=== PATIENT | female | born 1985 | race Caucasian/White ===

== ENCOUNTER 2018-09-01 10:50 | Emergency (ER) | payer BC ==
[2018-09-01] MEDS ORDERED: Lactated Ringers 1,000 ML IV ONE ×2 (11:53→12:50)
[2018-09-01] MEDS ORDERED: Sodium Chloride 0.9% 10 ML Syringe FLUSH PRN (11:53)
[2018-09-01] MEDS ORDERED: Ondansetron 4 MG/2 ML SDV IVPUSH ONE (11:53)
[2018-09-01] MEDS ORDERED: Famotidine 20 MG/2 ML SDV IVPUSH ONE (11:54)
--- NOTE | 2018-09-01 12:06 | EDM.PDOC ---
ED HPI GENERAL MEDICAL PROBLEM - General Chief Complaint: Gastrointestinal Problem Stated Complaint: THROWING UP, LIGHT HEADED Time Seen by Provider: 09/01/18 11:40 Source of Information: Reports: Patient History Limitations: Reports: No Limitations - History of Present Illness INITIAL COMMENTS - FREE TEXT/NARRATIVE: 33-year-old female presents for evaluation and treatment of nausea, vomiting and diarrhea. Patient reports that her symptoms started on Wednesday with diarrhea. States she's had 2 or 3 episodes of diarrhea on Wednesday. She states that the vomiting started last night and has had multiple episodes of vomiting. States she's not had any additional diarrhea as she did take some Imodium. She is reporting associated symptoms of fatigue, lightheadedness, nausea and decreased appetite. No blood in her emesis nor her stool. She's not had a bowel movement now since Wednesday. She denies any sore throat, ear pain, cough or abdominal pain. She denies any ill contacts. She denies any questionable foods. She denies any recent travel. She states she has not been on any antibiotics recently. She is currently on her menstrual cycle. Duration: Day(s): (4) Abdominal Pain Score (Numeric/FACES): 4 - Related Data Allergies Allergy/AdvReac Type Severity Reaction Status Date / Time escitalopram [From Lexapro] Allergy Shaking Verified 09/01/18 11:25 Home Meds: Home Meds Ondansetron [Zofran ODT] 4 mg PO Q6H PRN #20 tab.dis 09/01/18 [Rx] atorvaSTATin Calcium [Atorvastatin Calcium] 10 mg PO DAILY 09/01/18 [History] metFORMIN HCl [Metformin HCl] 1,000 mg PO BID 09/01/18 [History] Past Medical History HEENT History: Reports: Impaired Vision Cardiovascular History: Reports: Hypertension Gastrointestinal History: Reports: GERD, Irritable Bowel Syndrome Psychiatric History: Reports: Anxiety Endocrine/Metabolic History: Reports: Diabetes, Type II Social & Family History - Tobacco Use Smoking Status *Q: Never Smoker - Caffeine Use Caffeine Use: Reports: None - Recreational Drug Use Recreational Drug Use: No ED ROS GENERAL - Review of Systems Review Of Systems: See Below GI/Abdominal: Reports: Abdominal Pain, Diarrhea, Nausea, Vomiting. Denies: Bloody Stool, Hematochezia, Melena Neurological: Reports: Dizziness ED EXAM, GI/ABD - Physical Exam Exam: See Below Exam Limited By: No Limitations General Appearance: Alert, WD/WN, No Apparent Distress Throat/Mouth: Other (dry mucus membranes, dry lips) Respiratory/Chest: No Respiratory Distress, Lungs Clear, Normal Breath Sounds Cardiovascular: Normal Peripheral Pulses, Regular Rate, Rhythm, No Murmur GI/Abdominal Exam: Soft, Non-Tender, Other (decreased bowel sounds) Neurological: Alert, Oriented, Normal Cognition Psychiatric: Normal Affect, Normal Mood Skin Exam: Warm, Dry, Normal Color Course - Vital Signs Last Recorded V/S: Last Vital Signs Temp 97.9 F 09/01/18 11:20 Pulse 117 H 09/01/18 11:20 Resp 16 09/01/18 11:20 BP 147/92 H 09/01/18 11:20 Pulse Ox 100 09/01/18 11:20 Orthostatic Blood Pressure [ 140/93 Standing] Orthostatic Blood Pressure [ 145/98 Sitting] Orthostatic Blood Pressure [ 147/92 Supine] - Orders/Labs/Meds Orders: Active Orders 24 hr Category Date Time Status Orthostatic Vital Signs [RC] ASDIRECTED Care 09/01/18 11:21 Active Peripheral IV Care [RC] . DIRECTED Care 09/01/18 11:53 Active Peripheral IV Insertion Adult [OM.PC] Routine Oth 09/01/18 11:53 Ordered Labs: Laboratory Tests 09/01/18 09/01/18 09/01/18 Range/Units 11:45 11:45 14:15 WBC 10.22 H (3.98-10.04) K/mm3 RBC 4.30 (3.98-5.22) M/mm3 Hgb 13.7 (11.2-15.7) gm/L Hct 39.9 (34.1-44.9) % MCV 92.8 (79.4-94.8) fl MCH 31.9 (25.6-32.2) pg MCHC 34.3 (32.2-35.5) g/dl RDW Std Deviation 38.8 (36.4-46.3) fL Plt Count 388 H (182-369) K/mm3 MPV 8.9 L (9.4-12.3) fl Neut % (Auto) 73.1 H (34.0-71.1) % Lymph % (Auto) 21.5 (19.3-51.7) % [place] % (Auto) 4.3 L (4.7-12.5) % Eos % (Auto) 0.6 L (0.7-5.8) Baso % (Auto) 0.5 (0.1-1.2) % Neut # (Auto) 7.47 H (1.56-6.13) K/mm3 Lymph # (Auto) 2.20 (1.18-3.74) K/mm3 [place] # (Auto) 0.44 H (0.24-0.36) K/mm3 Eos # (Auto) 0.06 (0.04-0.36) K/mm3 Baso # (Auto) 0.05 (0.01-0.08) K/mm3 Sodium 136 (136-145) mEq/L Potassium 3.5 (3.5-5.1) mEq/L Chloride 96 L (98-107) mEq/L Carbon Dioxide 25 (21-32) mEq/L Anion Gap 18.5 H (5-15) BUN 15 (7-18) mg/dL Creatinine 1.1 H (0.55-1.02) mg/dL Est Cr Clr Drug Dosing 77.19 mL/min Estimated GFR (MDRD) 57 (>60) mL/min BUN/Creatinine Ratio 13.6 L (14-18) Glucose 210 H (74-106) mg/dL Calcium 9.5 (8.5-10.1) mg/dL Magnesium 1.4 L (1.8-2.4) mg/dl Total Bilirubin 0.4 (0.2-1.0) mg/dL AST 46 H (15-37) U/L ALT 51 (14-59) U/L Alkaline Phosphatase 32 L (46-116) U/L Total Protein 8.4 H (6.4-8.2) g/dl Albumin 4.4 (3.4-5.0) g/dl Globulin 4.0 gm/dL Albumin/Globulin Ratio 1.1 (1-2) Urine Color [place] H (Yellow) Urine Appearance Cloudy H (Clear) Urine pH 7.0 (5.0-8.0) Ur Specific [place] 1.015 (1.005-1.030) Urine Protein 2+ H (Negative) Urine Glucose (UA) Negative (Negative) Urine Ketones Negative (Negative) Urine Occult Blood 3+ H (Negative) Urine Nitrite Negative (Negative) Urine Bilirubin Negative (Negative) Urine Urobilinogen 0.2 (0.2-1.0) Ur Leukocyte Esterase Negative (Negative) Urine RBC >100 H (0-5) /hpf Urine WBC Not seen (0-5) /hpf Ur Squamous Epith Cells 5-10 H (0-5) /hpf Urine Bacteria Rare (FEW) /hpf Urine Mucus Not seen (FEW) /hpf Meds: Medications Discontinued Medications Generic Name Dose Route Start Last Admin Trade Name Freq PRN Reason Stop Dose Admin Famotidine 20 mg 09/01/18 11:54 09/01/18 12:07 Pepcid IVPUSH 09/01/18 11:55 20 mg ONETIME ONE Administration Lactated Ringer's 1,000 mls @ 999 mls/hr 09/01/18 11:53 09/01/18 12:06 Ringers, Lactated IV 09/01/18 12:53 999 mls/hr .BOLUS ONE Administration Lactated Ringer's 1,000 mls @ 999 mls/hr 09/01/18 12:50 09/01/18 13:09 Ringers, Lactated IV 09/01/18 13:50 999 mls/hr .BOLUS ONE Administration Magnesium Sulfate 2 gm/ Premix 50 mls @ 50 mls/hr 09/01/18 13:21 09/01/18 14: 23 IV 09/01/18 14:20 50 mls/hr ONETIME ONE Administration Ondansetron HCl 4 mg 09/01/18 11:53 09/01/18 12:06 Zofran IVPUSH 09/01/18 11:54 4 mg ONETIME ONE Administration Sodium Chloride 10 ml 09/01/18 11:53 09/01/18 12:08 Saline Flush FLUSH 10 ml ASDIRECTED PRN Administration Keep Vein Open - Re-Assessments/Exams Free Text/Narrative Re-Assessment/Exam: 09/01/18 13:34 Checked on the patient. She is feeling improved and sipping on some fluids. She is on her second liter of fluid. Plan will be to give her low magnesium is remaining is low at 1.4 and give her the additional fluids. Will plan discharge her home with Zofran and symptomatic care. 09/01/18 14:13 Patient feeling improved. Instructed to utilize clear fluids and a bland diet. Follow-up if not better. Discharge instructions as documented. Departure - Departure Time of Disposition: 14:25 Disposition: Home, Self-Care 01 Condition: Good Clinical Impression: Nausea & vomiting, Viral gastroenteritis - Discharge Information *PRESCRIPTION DRUG MONITORING PROGRAM REVIEWED*: No *COPY OF PRESCRIPTION DRUG MONITORING REPORT IN PATIENT VICKY: No Prescriptions: Ondansetron [Zofran ODT] 4 mg PO Q6H PRN #20 tab.dis PRN Reason: Nausea Instructions: Viral Gastroenteritis, Adult, [id number], Nausea and Vomiting, Adult, [id number] Referrals: Damaris Dove SERVICE CAR DRIVER [Primary Care Provider] - Forms: ED Department Discharge Additional Instructions: Drink plenty of fluids. Water, gatorade or powerade. Take small frequent sips. Clear fluids today and tomorrow morning. [place] foods tomorrow. [place] foods include bread, applesauce, bananas, toast, soup broth, etc. May advance to a normal diet tomorrow. Zofran 1 tab sublingual every 6-8 hours prn nausea. Recommend a probiotic, these are available OTC. Follow-up with PCP if not better in 7-10 days. Please return to the ER should your symptoms change or worsen. - My Orders Last 24 Hours: My Active Orders 09/01/18 11:21 Orthostatic Vital Signs [RC] ASDIRECTED 09/01/18 11:53 Peripheral IV Care [RC] . DIRECTED Peripheral IV Insertion Adult [OM.PC] Routine - Assessment/Plan Last 24 Hours: My Active Orders 09/01/18 11:21 Orthostatic Vital Signs [RC] ASDIRECTED 09/01/18 11:53 Peripheral IV Care [RC] . DIRECTED Peripheral IV Insertion Adult [OM.PC] Routine
[2018-09-01] MEDS ORDERED: Magnesium Sulfate/Water 2 GM in Premix Bag 1 BAG IV ONE (13:21)
== END 2018-09-01 15:20 | disposition home or self-care (01) ==
LOC: JD.ED 10:50
DX: A08.4 Viral intestinal infection, unspecified (principal); E11.9 Type 2 diabetes mellitus without complications; I10 Essential (primary) hypertension; F41.9 Anxiety disorder, unspecified; K21.9 Gastro-esophageal reflux disease without esophagitis; Z79.84 Long term (current) use of oral hypoglycemic drugs; Z79.899 Other long term (current) drug therapy; Z88.8 Allergy status to other drugs, medicaments and biological substances
CPT/HCPCS: 36415; 80053; 81001; 83735; 85025; 96361; 96365; 96375; 99284; J2405; J3475; J3490; J7120

== ENCOUNTER 2019-01-20 12:32 | Emergency (ER) | payer BC ==
--- NOTE | 2019-01-20 13:43 | EDM.PDOC ---
ED HPI GENERAL MEDICAL PROBLEM - General Chief Complaint: Lower Extremity Injury/Pain Stated Complaint: R FOOT NUMBNESS Time Seen by Provider: 01/20/19 13:22 Source of Information: Reports: Patient History Limitations: Reports: No Limitations - History of Present Illness INITIAL COMMENTS - FREE TEXT/NARRATIVE: 33-year-old female presents the ED for evaluation of lancinating sharp stabbing burning pain in her right foot this seems to be spreading. Appreciated in her toes on Wednesday last week January 13 and seems to be traveling towards her heel. Her mother from a complication of peripheral vascular disease and diabetic neuropathy which created an ulceration in her heel she is therefore somewhat anxious in this regard. Patient has been prediabetic for 10 years and started on medication for type 2 diabetes about a year ago. Her hemoglobin A1c was last around 8.3. She is starting to check her sugars on a much more regular basis. Also has a very markedly elevated hypertriglyceridemia and elevated cholesterol due to a very low HDL at 18. He states the pain is in bed not to keep her awake at night it was just more concerning than something more serious was involving. Onset: Gradual Onset Date: 01/13/19 (Has some symptoms of neuropathy in the left foot for a lengthy period of time no symptoms developing in the right foot.) Duration: Day(s):, Waxing/Waning Location: Reports: Lower Extremity, Left (Had her left great toenail ), Lower Extremity, Right Quality: Reports: Other (Describes the pain as burning sharp and lancinating. Will shoot mostly on the dorsal lateral aspect of her foot but until all of her toes. Not so much on these foot.) Severity: Moderate (Her heel at times as well.) Improves with: Reports: None Worsens with: Reports: None Context: Reports: Other. Denies: Activity, Exercise, Lifting, Sick Contact, Trauma Associated Symptoms: Reports: Malaise. Denies: No Other Symptoms, Confusion, Chest Pain, Cough, cough w sputum, Diaphoresis, Fever/Chills, Headaches, Loss of Appetite, Nausea/Vomiting, Rash, Seizure, Shortness of Breath, Syncope Treatments DIRECTOR GIFT: Reports: Other (see below) (Only her regular medications.) - Related Data Allergies Allergy/AdvReac Type Severity Reaction Status Date / Time escitalopram [From Lexapro] Allergy Shaking Verified 09/01/18 11:25 Home Meds: Home Meds Ondansetron [Zofran ODT] 4 mg PO Q6H PRN #20 tab.dis 09/01/18 [Rx] atorvaSTATin Calcium [Atorvastatin Calcium] 40 mg PO DAILY 09/01/18 [History] metFORMIN HCl [Metformin HCl] 1,000 mg PO BID 09/01/18 [History] Alpha Lipoic Acid 600 mg PO DAILY 01/20/19 [History] Ascorbic Acid [Vitamin C] 150 mg PO DAILY 01/20/19 [History] Cetirizine [ZyrTEC] 10 mg PO BEDTIME 01/20/19 [History] Colestipol [Colestipol HCl] 2 mg PO DAILY 01/20/19 [History] Desipramine 20 mg PO DAILY 01/20/19 [History] Fenofibrate Nanocrystallized [Tricor] 145 mg PO DAILY 01/20/19 [History] Fexofenadine [Nini] 180 mg PO DAILY 01/20/19 [History] Krill Oil 500 mg PO DAILY 01/20/19 [History] Lisinopril 2.5 mg PO DAILY 01/20/19 [History] Multivitamin [Multivitamins] 1 tab PO DAILY 01/20/19 [History] Omeprazole Magnesium [Prilosec Otc] 20 mg PO DAILY 01/20/19 [History] Pramipexole Di-HCl [Mirapex] 3.65 mg PO BEDTIME 01/20/19 [History] Semaglutide [Ozempic] 1 injection IM MO 01/20/19 [History] Ubidecarenone [Co Q-10] 400 mg PO DAILY 01/20/19 [History] Vitamin B Complex [B Complex] 1 tab PO DAILY 01/20/19 [History] guaiFENesin [Mucinex] 600 mg PO DAILY 01/20/19 [History] raNITIdine HCl [Zantac] 150 mg PO DAILY 01/20/19 [History] Past Medical History HEENT History: Reports: Impaired Vision Cardiovascular History: Reports: Hypertension Gastrointestinal History: Reports: GERD, Irritable Bowel Syndrome Psychiatric History: Reports: Anxiety Endocrine/Metabolic History: Reports: Diabetes, Type II (She states she is prediabetic for about 10 years and then the last year she's had to take diabetic medication for type 2 diabetes. Last hemoglobin A1c was 8.3.), Obesity/ BMI 30+. Denies: Hypothyroidism Social & Family History - Tobacco Use Smoking Status *Q: Never Smoker - Caffeine Use Caffeine Use: Reports: Tea - Recreational Drug Use Recreational Drug Use: No - Living Situation & Occupation Living situation: Reports: Single Occupation: Unemployed Review of Systems - Review of Systems Review Of Systems: See Below Constitutional: Denies: Chills, Diaphoresis, Fever, Weakness, Other Eyes: Reports: Decreased Acuity. Denies: No Symptoms, Blindness, Blurred Vision , Drainage, Foreign Body Sensation Ears: Reports: No Symptoms Nose: Reports: No Symptoms Mouth/Throat: Reports: No Symptoms Respiratory: Reports: No Symptoms Cardiovascular: Reports: Other (A severe hypertriglyceridemia and hypercholesterolemia.). Denies: Chest Pain GI/Abdominal: Reports: Diarrhea (Chronic diarrhea. Apparently has a nonfunctioning gallbladder. This places her at risk of bile salt catharsis and malabsorption of many of her vitamins including B12.) Genitourinary: Reports: Other (Urinary frequency) Musculoskeletal: Reports: Joint Pain Skin: Reports: Other (Dry skin) Neurological: Reports: Numbness (Peripheral neuropathy left leg for a lengthy period time now developing neuropathy in her right leg), Paresthesia (Burning lancinating pains currently in right foot for the last week or more), Tingling, Other Psychiatric: Reports: Anxiety ED EXAM, GENERAL - Physical Exam Exam: See Below Exam Limited By: No Limitations General Appearance: Alert, WD/WN, Anxious, Mild Distress, Other (Vital signs show temperature 37.4. Pulse 116 at rest. Respiratory 20 BP 151 100 and sats of 99%. These numbers did improve after I sat with her. Pulse came down to 92 blood pressure came down to 142 92.) Eye Exam: Bilateral Eye: Normal Inspection (No scleral icterus or pallor.) Throat/Mouth: Normal Inspection, Normal Oropharynx Head: Atraumatic, Normocephalic Neck: Normal Inspection, Supple, Non-Tender, Full Range of Motion, Lymphadenopathy (R). No: Carotid Bruit, Lymphadenopathy (L), Thyromegaly Respiratory/Chest: No Respiratory Distress, Normal Breath Sounds, No Accessory Muscle Use, Respiratory Distress (Mild tachypnea at rest due to anxiety.) Cardiovascular: Regular Rate, Rhythm, No Edema, No Gallop, No Murmur, No Rub, Tachycardia (Initial sinus tachycardia but improved shortly after coming into the ED and once I was speaking with her cane down to 92/m.), Other (Decreased femoral pulses bilaterally.) Peripheral Pulses: 1+: Posterior Tibial (R) (Patient has decreased pulses to her right foot and the foot itself is quite cool to touch.), 2+: Carotid (L), Carotid (R), Radial (L), Radial (R), Femoral (L), Femoral (R), Posterior Tibial (L), Dorsalis Pedis (L), Dorsalis Pedis (R) GI/Abdominal: Normal Bowel Sounds, Soft, Non-Tender, No Organomegaly, No Mass, Pelvis Stable Extremities: Other (She has diffuse erythema both feet and toes. Dry scaly skin on all of her toes. He has a bandage on her left great toe where she had a left toenail resection about a month ago. She states it's healing up well. No open wounds or ulcerations on the feet. Decreased circulation appreciated to the right foot and the toes to the right foot are cooler than on the left. No signs of gangrene. Definite change in sensation dorsal aspect of the right lateral foot distribution of the common peroneal nerve.) Neurological: Alert, Oriented, CN II-XII Intact, Normal Cognition, Sensory/ Motor Deficit (Patient has peripheral neuropathy in both feet currently just starting in the right foot in the common peroneal nerve root distribution.). No : Normal Reflexes, No Motor/Sensory Deficits Skin Exam: Warm, Dry, Intact, Normal Color, Cool (Right foot is cool to touch particularly the toes as compared to the left.) Course - Vital Signs Last Recorded V/S: Last Vital Signs Temp 36.8 C 01/20/19 14:09 Pulse 110 H 01/20/19 14:09 Resp 12 01/20/19 14:09 BP 132/94 H 01/20/19 14:09 Pulse Ox 95 01/20/19 14:09 - Orders/Labs/Meds Orders: Active Orders 24 hr Category Date Time Status ZINC, PLASMA OR SERUM [REF] Routine Lab 01/20/19 13:41 Ordered Labs: Laboratory Tests 01/20/19 01/20/19 01/20/19 Range/Units 13:58 13:58 13:58 WBC 10.05 H (3.98-10.04) K/mm3 RBC 4.34 (3.98-5.22) M/mm3 Hgb 13.4 (11.2-15.7) gm/dl Hct 40.5 (34.1-44.9) % MCV 93.3 (79.4-94.8) fl MCH 30.9 (25.6-32.2) pg MCHC 33.1 (32.2-35.5) g/dl RDW Std Deviation 41.0 (36.4-46.3) fL Plt Count 505 H D (182-369) K/mm3 MPV 9.2 L (9.4-12.3) fl Neutrophils % (Manual) 55 (40-60) % Band Neutrophils % 0 (0-10) % Lymphocytes % (Manual) 35 (20-40) % Atypical Lymphs % 0 % Monocytes % (Manual) 6 (2-10) % Eosinophils % (Manual) 3 (0.7-5.8) % Basophils % (Manual) 1 (0.1-1.2) Platelet Estimate Increased Plt Morphology Comment See note RBC Morph Comment Normal Magnesium 1.4 L (1.8-2.4) mg/dl Vitamin B12 437 (193-986) pg/ml Folate 73.6 H (8.6-58.9) ng/mL - Radiology Interpretation Free Text/Narrative:: 33-year-old female presents the ED due to developing sharp shooting burning lancinating pains in her right foot over the last week. Seems to be getting worse by spreading towards the heel. Initially was felt primarily her toes and dorsal lateral right foot. Neuropathy in her left foot for a period of time. She has a combination of diabetes and by examination significant atherosclerosis peripheral vascular disease of your young age. She is a never smoker. Labs and her phone indicate that she has a very low HDL at 18 indicating that she has severe hypercholesterolemia and hypertriglyceridemia. I will order some routine labs particularly be B12 folic acid zinc and magnesium levels but on her phone she's had recent TSH checked and was normal. She has an appointment to see Dr. Sow in the clinic next Wednesday. She'll be January [birth year]. It is my suggestion that the patient be sent onwards for vascular studies although she has no claudication symptoms she seems to be resenting with significant vascular disease as well as likely diabetic nerve neuropathy symptoms in both feet at a very young age. At this time I did not offer her any medication and she's not having trouble sleeping. The sharp burning pains are more worrisome to her that more serious disease process is going to occur. Also her blood sugars I think are probably up and down and perhaps coming under better control as of late which can often cause neuropathy symptoms to worsen transiently until the blood sugars are stabilized. Departure - Departure Time of Disposition: 13:50 Disposition: Home, Self-Care 01 Condition: Fair Clinical Impression: Peripheral neuropathy due to disorder of metabolism - Discharge Information *PRESCRIPTION DRUG MONITORING PROGRAM REVIEWED*: Not Applicable *COPY OF PRESCRIPTION DRUG MONITORING REPORT IN PATIENT VICKY: Not Applicable Instructions: Peripheral Neuropathy Referrals: Damaris Dove NP [Primary Care Provider] - Forms: ED Department Discharge Additional Instructions: Evaluation the emergency room today in regards to increasing lancinating sharp shooting and burning type pain to the lateral aspect of your right foot over the last several days and perhaps even a week. You already have some degree of neuropathy in the left foot. You have had diabetes for probably 10 years with prediabetic state and then use of medications to control sugars more so over the last year. On examination there is decreased circulation to the right foot as compared to the left. The posterior tibial pulse is barely palpable we would give you one out of 4 for this. The pulse on the top of the foot again is difficult to find and decreased from normal for your age. Therefore you have some form of vascular disease as well as diabetes potentially causing neuropathy to your right foot. Circulation is adequate at this point time but may be problematic in the future and I would suggest that a vascular surgery consult be obtained to look for the obstruction of the major arteries particularly the femorals at the groin.. This could be because you have very high serum triglycerides and blood cholesterol which are for the most part genetic and could contribute to faster than normal hardening of the arteries. At this time there is no skin breakdown on the right foot. Since you're not having severe pain that is keeping you awake at night no treatment options will be provided at this time. Lab tests were drawn to rule out other potential causes such as B12 deficiency send these results will be sent to Dr. Sow whom you are to see Wednesday. Please keep this appointment. - My Orders Last 24 Hours: My Active Orders 01/20/19 13:41 ZINC, PLASMA OR SERUM [REF] Routine - Assessment/Plan Last 24 Hours: My Active Orders 01/20/19 13:41 ZINC, PLASMA OR SERUM [REF] Routine
== END 2019-01-20 14:10 | disposition home or self-care (01) ==
LOC: JD.ED 12:32
DX: E88.9 Metabolic disorder, unspecified (principal); E11.42 Type 2 diabetes mellitus with diabetic polyneuropathy; I10 Essential (primary) hypertension; K21.9 Gastro-esophageal reflux disease without esophagitis; E66.9 Obesity, unspecified; Z79.899 Other long term (current) drug therapy; Z79.84 Long term (current) use of oral hypoglycemic drugs; Z88.8 Allergy status to other drugs, medicaments and biological substances
CPT/HCPCS: 36415; 82607; 82746; 83735; 84630; 85007; 85027; 99283